=== PATIENT | female | born 2005 | race African-American/Black ===

== ENCOUNTER 2024-09-05 13:06 | Emergency (ER) | payer OTHER ==
[2024-09-05 13:12] VITALS: BP 99/74; PULSE 72; RESP 20; TEMP 98.4; BMI 20.2
[2024-09-05] MEDS ORDERED: DOXYCYCLINE HYCLATE 100 MG CAPSULE PO ONE (14:44)
[2024-09-05] MEDS: DOXYCYCLINE HYCLATE 100 MG CAPSULE PO ONE (14:56)
[2024-09-05 15:06] LABS: PH,URINE 8.5 (5.0-8.0); URINE APPEARANCE Error; URINE BILIRUBIN NEGATIVE (NEGATIVE); URINE COLOR YELLOW; URINE GLUCOSE (UA) NEGATIVE (NEGATIVE); URINE KETONE NEGATIVE (NEGATIVE); URINE LEUK ESTERASE NEGATIVE (NEGATIVE); URINE NITRITE NEGATIVE (NEGATIVE); URINE PROTEIN NEGATIVE (NEGATIVE); URINE UROBILINOGEN 0.2 mg/dL (0.2-1.0)
[2024-09-05] MEDS ORDERED: LIDOCAINE HCL 1%, 10 MG/ML (20ML VIAL) ONE (15:10)
[2024-09-05 16:26] LABS: HIV INTERPRETATION NEGATIVE (NEGATIVE)
== END 2024-09-05 15:28 | disposition home or self-care (01) ==
LOC: JERFT 13:06
DX: N89.8 Other specified noninflammatory disorders of vagina (principal); R30.0 Dysuria
CPT/HCPCS: 36415; 81003; 86780; 86803; 87070; 87086; 87205; 87389; 87491; 87591; 99284-25